=== PATIENT | male | born 1985 | race Caucasian/White ===

== ENCOUNTER 2024-12-09 14:28 | Inpatient (IN) | payer MEDICAID, OTHER, SELFPAY ==
[2024-12-09] VITALS (56 sets, daily range): BP systolic 106–184; BP diastolic 67–113; PULSE 85–125; RESP 10–98; TEMP 36.5–37.2; O2SAT 93–99; BMI 25.9
--- NOTE | 2024-12-09 | XR_ITS ---
Examinations: MRI Brain without intravenous contrast. MRA brain without intravenous contrast. MRA carotids without intravenous contrast 3-D vascular reconstructions Date and time of exam: December 09, 2024 1829 hours Indications: Onset left-sided body weakness beginning 1310 hours today, past medical history seizures, CT stroke alert today Technique: Multiple axial and sagittal images of the brain have been obtained MRA brain carotid images without contrast obtained, including 3-D postprocessing, vascular maximum intensity projection images Findings: Sellaturcica is not enlarged. The optic chiasm and infundibular stalk are not remarkable. Prepontine and interpeduncular cisterns are not enlarged. No localized enlargement of the medulla or cruz. Fourth ventricle and cerebellar tonsils normal in position. Subacute hemorrhage is not seen. Fourth ventricle is midline. Mass in the cerebellopontine angle region is not evident. 7th and 8th nerve complexes exhibits symmetry. Globes are symmetrical with no retro-orbital mass. Increased white matter signal not seen Diffusion-weighted images demonstrate no focus of restricted diffusion Mass-effect upon the ventricular system is not identified. MRA carotid images no significant carotid stenoses. MRA brain images no large vessel occlusions. Impression: Negative for acute hemorrhage, mass effect or midline shift No acute infarct No MR findings diagnostic for demyelinating disease No significant carotid stenoses No cerebral large vessel occlusions or thrombus
--- NOTE | 2024-12-09 14:30 | XR_ITS ---
Examination: CT brain head without contrast. 2-D sagittal coronal reconstructions Date and time of exam:December 09, 2024 at 1433 hours INDICATIONS: Stroke alert, onset focal neurologic deficit beginning 2 hours ago, left-sided facial droop and left-sided body weakness CTDI: vol (mGy):48.8 DLP: (mGycm):986 Technique: Multiple CT axial sections of the brain have been obtained, 5 mm slice thickness. Contrast has not been administered. 2-D sagittal, coronal reconstructions have been obtained Low dose protocols were performed. One or more of the following dose reduction techniques were used; automated exposure control, adjustment of the mA and/or KV according to patient size, use of iterative reconstruction technique. Findings: No significant ventricular enlargement. Intra-axial or extra-axial hemorrhage density is not seen. No mass effect or midline shift Basal cisterns are not remarkable. Fourth ventricle is midline. Cranial vault intact. Impression: Negative for acute hemorrhage, mass effect or midline shift Brain MRI MRA without contrast, stroke protocol, would best assess for acute ischemic change, demyelinating disease
--- NOTE | 2024-12-09 14:30 | XR_ITS ---
Examination: CTA carotids with intravenous contrast CTA brain, head with intravenous contrast. 2-D sagittal, coronal reconstructions. 3-D reconstructions. Exam date and time: December 09, 2024 1441 hours INDICATIONS: Stroke alert, onset focal neurologic deficit beginning 2 hours ago, left-sided facial droop and left-sided body weakness CTDI: vol (mGy) 16 DLP: (mGycm) 434 Technique: Multiple CTA axial brain, head carotid images post intravenous contrast injection 75 cc, [id number]. 2-D sagittal, coronal reconstructions. 3-D reconstructions, 3-D post processing including vascular maximum intensity projection images. Low dose protocols were performed. One or more of the following dose reduction techniques were used; automated exposure control, adjustment of the mA and/or KV according to patient size, use of iterative reconstruction technique. Findings: No significant common carotid carotid bifurcation or internal carotid artery stenoses Dominant left vertebral artery with no critical stenoses No cerebral arterial large vessel occlusions or thrombus IMPRESSION: No significant neck arterial stenoses No cerebral large vessel arterial occlusions or thrombus
--- NOTE | 2024-12-09 14:31 | PD.EDNEURO ---
Neuro Symptoms Deficit-RME/HPI General Chief Complaint: Neuro Symptoms/Deficit Stated Complaint: STROKE Time Seen by Provider: 12/09/24 14:30 Arrival date/time: 12/09/24 14:28 RME / HPI RME / HPI Narrative: This section includes all my notes and documentations, including HPI, PE, and ED course.? Willis Jarvis MD HPI: 39 year old male with history of seizures presents to the ED BIBA from [facility] for evaluation of stroke like symptoms today. Per medics, staff at the [facility] reported patient had possible syncopal episode and after regaining consciousness had notable left sided facial droop and arm/leg weakness. Per medics, on their evaluation patient given a G-FAST of 2. Prehospital BS 115, blood pressure 157/102. Staff denied any seizure like activity. ROS: All negative except as documented in HPI. Physical Exam: General:? Alert and oriented.? Eyes:? Conjunctivae and lids clear.? EOMI. PERRL. ENT:? No nasal congestion.? Neck:? Supple.? No carotid bruit. No JVD. Heart:?Sinus tachycardia noted. Lungs:? No respiratory distress.? Good air movement.? No rhonchi, wheezing, rales.?? Abdomen:? Soft and nontender.?? Legs:? No clubbing, cyanosis, edema.? Skin:? Warm and dry.?? Neuro:? Alert and oriented X 3.? Remarkable for dysarthria and left facial droop and left arm weakness and left leg weakness. I reviewed all diagnostic test results. My interpretation of the EKG is?sinus rhythm with no acute ST?T changes. My review of the head CT report is?no acute findings. My review of the head/neck CTA report is no acute findings. Blood tests unremarkable. At this point, diagnoses include?CVA. Treatment here included?TNK. Patient remained stable. I discussed the case with our telehealth neurologist and our senior staff consultant.? About the presentation and exam and diagnostics and treatments here.? And need of further care in the hospital.? Will accept the patient. Willis Jarvis MD Related Data Previous Rx's ?Medication ?Instructions ?Recorded azithromycin 250 mg tablet See Rx Instructions PO .COMPLEX #6 11/05/22 tabs ibuprofen 600 mg tablet 600 mg PO QID PRN pain #20 tabs 11/05/22 Allergies Allergy/AdvReac Type Severity Reaction Status Date / Time No Known Allergies Allergy Verified 11/04/22 23:22 Course Quality Measures none Orders Category Date Time Status Bedside Blood Glucose NOW Care 12/09/24 14:30 Active COVID-19 Screening Questionnaire NOW Care 12/09/24 15:31 Active Quality Systems Specialist NOW Care 12/09/24 14:30 Active Continuous Pulse Oximetry NOW Care 12/09/24 14:30 Completed Decision to Admit X1 Care 12/09/24 15:31 Completed EKG (ED ONLY) *Do not use* NOW Care 12/09/24 14:30 Completed In and Out Catheter NEEDED Care 12/09/24 14:30 Active Insert IV NOW Care 12/09/24 14:30 Active NIH Stroke Scale Q4HX8,QSHIFT Care 12/09/24 15:18 Active NIH Stroke Scale now Care 12/09/24 14:30 Active NPO NOW Care 12/09/24 14:30 Active Neuro Check Q15M Care 12/09/24 15:18 Active Nurse Swallow Screen x1 Care 12/09/24 14:30 Active Vital Signs Q15M Care 12/09/24 15:18 Active Consult to Neurology / Tele-Neurology Routine Cons 12/09/24 14:[address] angio stroke protocol Stat Exams 12/09/24 14:[address] stroke protocol Stat Exams 12/09/24 14:30 Completed EKG (ED Only) Stat Exams 12/09/24 14:30 Ordered Alcohol, Blood Medical Stat Lab 12/09/24 14:42 Completed Arterial Blood Gas Stat Lab 12/09/24 14:31 Ordered B-Type Natriuretic Peptide Stat Lab 12/09/24 14:42 Completed CBC Stat Lab 12/09/24 14:42 Completed Comprehensive Metabolic Panel Stat Lab 12/09/24 14:42 Completed Drug Screen,Urine Stat Lab 12/09/24 14:30 Ordered Magnesium Stat Lab 12/09/24 14:42 Completed Partial Thromboplastin Time Stat Lab 12/09/24 14:42 Completed Prothrombin Time with INR Stat Lab 12/09/24 14:42 Completed Troponin I Stat Lab 12/09/24 14:42 Completed Labetalol IV [Trandate IV] Med 12/09/24 14:30 Active 10 mg IV Q15M PRN Labetalol IV [Trandate IV] Med 12/09/24 15:03 Active 10 mg IVP PRNMRX1 PRN Labetalol IV [Trandate IV] Med 12/09/24 15:03 Active 10 mg IVP PRNMRX1 PRN Nicardipine/Ns 20Mg Ivpb [Cardene Ivpb] Med 12/09/24 15:03 Active 20 mg in 200 ml IV 5 mg/hr Ondansetron Inj [Zofran Inj] Med 12/09/24 14:30 Active 4 mg IV Q4HR PRN Sodium Chloride 0.9% 1000 ml [Ns] 1,000 ml Med 12/09/24 14:30 Active IV 100 mls/hr Tenecteplase Inj [TNKase Inj] Med 12/09/24 15:03 Discontinued 18.8 mg IV X1 ONE Tenecteplase Inj [TNKase Inj] Med 12/09/24 14:50 Discontinued 50 mg .ROUTE .STK-MED ONE Oxygen Delivery NOW RT 12/09/24 14:30 Active Vital Signs Vital signs: Vital Signs Pulse Rate 125 H 12/09/24 14:35 Respiratory Rate 16 12/09/24 14:35 Blood Pressure 166/113 H 12/09/24 14:35 Pulse Oximetry (%) 97 12/09/24 14:35 Oxygen Delivery Method Room Air 12/09/24 14:35 Neuro Symptoms / Deficit Patient data External records reviewed:: [facility] previous records and EMS form Clinical information provided by:: patient, EMS and law enforcement Social determinants that could affect healthcare access:: other (specify) (Incarceration) Patient has the following chronic illnesses:: Seizure disorder How is presenting disease/condition affected by chronic disease/condition?: uneffected by Evaluation data The following diagnostics were reviewed and interpreted by me:: lab results, radiology exam(s) and EKG tracing(s) (My interpretation of the EKG: Sinus tachycardia (126 bpm) with no ST-T changes. Willis Jarvis MD) Lab and/or radiology exams considered but not ordered:: None Interpretation Summary: CVA Medications / Prescriptions Medications or Prescriptions considered but not ordered:: None Medication administrations:: Medication Administration History Sodium Chloride (Ns) 1,000 mls @ 100 mls/hr IV .Q10H ROSARIO Stop: 01/08/25 14:29 Last Admin: 12/09/24 15:24 Dose: 100 mls/hr Documented By: JAMES Nicardipine/Sodium Chloride (Cardene Ivpb) 20 mg in 200 mls @ 50 mls/hr IV .Q4H PRN; Protocol PRN Reason: Per Nicardipine Stroke Protocol Stop: 01/08/25 15:02 Labetalol HCl (Labetalol Inj 5 Mg/Ml Vial 20 Ml) 10 mg IV Q15M PRN PRN Reason: HYPER Labetalol HCl (Labetalol Inj 5 Mg/Ml Vial 20 Ml) 10 mg IVP PRNMRX1 PRN PRN Reason: SBP > 185 mmHg and/or DBP > 110 Labetalol HCl (Labetalol Inj 5 Mg/Ml Vial 20 Ml) 10 mg IVP PRNMRX1 PRN PRN Reason: SBP > 180 mmHg or DBP > 105 Ondansetron HCl (Ondansetron Inj 2 Mg/Ml Inj 2 Ml) 4 mg IV Q4HR PRN PRN Reason: NAUSEA OR VOMITING Stop: 01/08/25 14:29 Discontinued Medications Tenecteplase (Tenecteplase Inj 50 Mg Vial) Confirm Administered Dose 50 mg .ROUTE .STK-MED ONE Stop: 12/09/24 14:51 Last Admin: 12/09/24 15:01 Dose: Not Given Documented By: JAMES Non-Admin Reason: Duplicate Medication on eMAR Tenecteplase (Tenecteplase Inj 50 Mg Vial) 18.8 mg 0.25 mg/kg (18.8 mg) IV X1 ONE Stop: 12/09/24 15:04 Last Admin: 12/09/24 15:22 Dose: 18.8 mg Documented By: JAMES Co-signed By: FATOUMATA Comments: given via 20g right ac over 1 min. TNK Consultations Consultation(s) initiated? (list below): Yes Consultation #1 (Physician, Specialty, Details): Telehealth neurology Diagnosis Neuro Differential Diagnosis: convulsions, delirium, subarachnoid hemorrhage, peripheral neuropathy, cerebrovascular accident, multiple sclerosis and transient cerebral ischemia Most likely diagnosis given after review of the tests above:: CVA Admission Indicated Admission indicated?: indicated Explain why admission is indicated or not indicated:: CVA Admission Request Was there a request for admission?: Yes Admission Attestation Admission request attestation: Discussed case with ICU service regarding admission. Discussed patients ED course, exam findings, labs, and radiology results. The Hospitalist [agrees,declines] to accept the patient for admission. Disposition Plan Disposition Plan: Admit Discharge Plan Plan Patient Disposition: Admit Acute Care w/in Hospital Prescriptions/Referrals Prescriptions/Med Rec: No Action azithromycin 250 mg tablet See Rx Instructions .ROUTE .COMPLEX Qty: 6 0RF Rx Instructions: For 250 mg dose pack: take 500 mg today (day 1), then 250 mg for 4 days (days 2-5) ibuprofen 600 mg tablet 600 mg PO QID PRN (Reason: pain) Qty: 20 0RF Problem List Clinical Impression: Cerebrovascular accident Patient/Caregiver Discharge Instructions Print Language: Khmer Stand Alone Forms: Anne[facility]Marie Award Info., Patient Portal Info Letter
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
[2024-12-09 14:51] LABS: Basophils # (Auto) 0.1 Thou/mm3 (0.0-0.2); Basophils % (Auto) 1 % (0-2.5); Eosinophils # (Auto) 0.4 Thou/mm3 (0.0-0.5); Eosinophils % (Auto) 4 % (0-10); Hematocrit 45.6 % (41.0-53.0); Hemoglobin 15.7 g/dL (13.5-16.0); Immature Granulocytes % (Auto) 1 % (0-0); Immature Granulocytes Auto 0.05 Thou/mm3 (0.00-0.00); Lymphocytes # (Auto) 2.3 Thou/mm3 (1.0-4.8); Lymphocytes % (Auto) 23 % (10-50); Mean Corpuscular HGB Conc 34.4 g/dl (31.0-37.0); Mean Corpuscular Hemoglobin 30.5 pg (25.0-35.0); Mean Corpuscular Volume 89 fL (80-100); Monocytes # (Auto) 0.7 Thou/mm3 (0.0-0.8); Monocytes % (Auto) 7 % (0-12); Neutrophils # (Auto) 6.4 Thou/mm3 (1.8-7.7); Neutrophils % (Auto) 65 % (37-80); Nucleated Red Blood Cell % 0 /100 WBC (0); Platelet Count 212 Thou/mm3 (140-440); RDW Standard Deviation 39.8 fL (35.1-43.9); Red Blood Count 5.15 Miln/mm3 (4.50-5.90); White Blood Count 9.9 Thou/mm3 (3.8-10.6)
--- NOTE | 2024-12-09 15:02 | PC.NURSE ---
Dr. Hutton, teleneuronlogist, performed checklist for TNKASe medication administration to be given, per Dr. Hutton's orders.
[2024-12-09 15:09] LABS: INR 0.9 (0.9-1.3); Prothrombin Time 10.4 Seconds (9.0-12.2)
[2024-12-09 15:15] LABS: Alanine Aminotransferase 103 U/L (10-49); Albumin, Serum 4.5 gm/dL (3.5-5.0); Albumin/Globulin Ratio 1.8 (1.2-2.2); Alcohol, Blood Medical < 10.0 mg/dL (0-10.0); Alkaline Phosphatase 52 U/L (46-116); Anion Gap 9 (7-16); Aspartate Amino Transferase 45 U/L (0-34); B-Type Natriuretic Peptide < 20 pg/mL (0-100); BUN/Creatinine Ratio 15 Ratio (12-20); Bilirubin,Total 0.4 mg/dL (0.3-1.2); Blood Urea Nitrogen 15 mg/dL (9-23); Calcium 9.6 mg/dL (8.3-10.6); Calcium (Corrected) 9.6 mg/dL (8.5-10.1); Carbon Dioxide 29.1 mMol/L (20.0-31.0); Chloride 99 mMol/L (98-107); Estimated Creatinine Clearance 93.6 mL/min (>60); Globulin 2.5 gm/dL (2.3-3.5); Glucose 110 mg/dL (74-106); Magnesium 2.1 mg/dL (1.6-2.6); Osmolality,Calculated 275 (275-295); Potassium 3.9 mMol/L (3.4-5.1); Sodium 137 mMol/L (136-145); Troponin I < 0.002 ng/mL (0.0-0.045); eGFR > 60 See Note
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
[2024-12-09] MEDS: TENECTEPLASE INJ 50 MG VIAL 18.8 MG IV (15:22)
[2024-12-09] MEDS: SODIUM CHLORIDE 0.9% 1000 ML 1,000 ML 100 ML IV (15:24)
[2024-12-09 16:01] LABS: Amphetamine/Methamp Scrn,U Negative (Negative); Barbiturate Screen,Urine Negative (Negative); Benzodiazepines Screen,Urine Negative (Negative); Benzoylecgonine Screen, Ur Negative (Negative); Fentanyl Screen,Urine Negative (Negative); Opiate Screen,Urine Negative (Negative); THC Screen,Urine Negative (Negative)
--- NOTE | 2024-12-09 17:04 | ECHO_ITS ---
Transthoracic Echo Report Ht (in): 67 Wt (lb): 165 Exam Location: Echo Lab Status: [facility] Assistant: Jesús Stella Indications: Procedure Performed: BP: 122 / 54 HR: Technical Quality: Very technically difficult study MEASUREMENTS (Male / Female) Normal Values DOPPLER MV Area PHT 5.0 cm? Mitral E Point Velocity 44.6 cm/s Mitral A Point Velocity 61.1 cm/s Mitral E to A Ratio 0.7 FINDINGS Left Ventricle Normal left ventricular size and wall thickness. Hyperdynamic LV. The ejection fraction is visually estimated at 70-75%. Grade I diastolic dysfunction. Right Ventricle The right ventricle is normal in size and systolic function. Left Atrium The left atrium is normal by two-dimensional, color flow and Doppler imaging with no structural abnormalities, no thrombus formation present. Right Atrium The right atrium is normal by two-dimensional imaging, color flow and Doppler imaging with no structural abnormalities, no thrombus formation present. Atrial Septum The interatrial septum appears normal with no evidence of a shunt. Aorta The aorta is normal by two-dimensional, color flow and Doppler interrogation. Mitral Valve The mitral valve is normal by two-dimensional, color flow and Doppler interrogation. There is no significant mitral valve regurgitation, stenosis or prolapse. Aortic Valve The aortic valve is trileaflet and normal by two-dimensional, color flow and Doppler interrogation. There is no significant aortic valve regurgitation. Tricuspid Valve The tricuspid valve is normal by two-dimensional, color flow and Doppler interrogation. There is trace tricuspid valve regurgitation. Pulmonic Valve The pulmonic valve is not well visualized. There is no significant pulmonic valve regurgitation. Vessels Inferior vena cava not well visualized. Pericardium The pericardium is normal by two-dimensional imaging. There is no significant pericardial effusion. CONCLUSIONS Indication: Stroke workup, w/ bubble study Negative bubbly study with no evidenceof any PFO. Consider EDDIE ifclinical index of suspicion is high. Normal left ventricular size and wall thickness.Normal LV function. Estimated EF 65-70 %. Grade I diastolic dysfunction. RV is normal in size and systolic function. Trace TR. Howard Reyes (Electronically Signed) Final Date: 11 December 2024 08:13
--- NOTE | 2024-12-09 17:13 | ESHP_ITS ---
<Statement entered by Alta Figueroa DO - 12/09/24 21:45> Senior attestation: Patient was examined and case was reviewed with team including attending physician. Note reviewed, I agree with most of its contents and agree with the patient's care. In summary patient is a 39 year old male with history of seizure disorder (stopped medications years ago) who presented to ED from [facility] with concerns of left sided facial and upper/lower extremity weakness. Last well known time ~1255, patient noted symptoms around 1310 today. In ED, tele-neurology team was consulted and advised tenecteplase. Following administration of tenecteplase, patient was admitted to the ICU for closer monitoring and further CVA management. Blood pressure goal < 180/105, prn labetalol and nicardipine drip ordered if warranted. Will repeat neuro checks q15min first 2 hours, then q30 mins for 6 hours, and q1 hour for next 16 hours. MRI head/brain to be completed after 24 hours of tenecteplase administration, will order echo with bubble study and repeat CT head/brain at 24 hours or earlier if clinically warranted. Will hold on aspirin/plavix and DVT prophylaxis for now, will order speech/physical therapy, keep NPO and avoid shipley cath insertion. Will complete additional CVA work up including a1c, lipid panel, TSH, and consult neurology team. Alta Figueroa DO PGY-3 Documentation for date of: 12/09/24 HPI History of Present Illness Chief complaint: Left-sided weakness History of present illness: Mr. Meehan is a 39-year-old male with past medical history of seizures who presented to [facility] emergency department on 12/09/2024 from [facility] with a chief complaint of left-sided weakness. Per patient he was well when he woke up earlier this morning, unable to report when the weakness started, denies having any seizure/seizure-like activity, no witnessed seizure-like activity, he was seen by nursing in the custodial around 1255, subsequently was found to have left-sided weakness around 1310, was laying in his bunk. Patient also did endorse some chest pain he had earlier this morning, patient is unable to describe how he got to the hospital. Otherwise patient denies taking any medications for his seizure, reports his last seizure was about 6 months ago. Reported that he started having tonic-clonic seizures around when he was 13 years old, did report following up with a neurologist and being on medications for seizure in the past, endorses that he stopped taking medications due to certain life stressors/triggers. Patient denies hitting his head, no bruising noted on head. ED Course: ED Vitals: On presentation BP 166/113, P125, RR 16, temp 97.8, O2 sat 97 on room air ED Labs:On presentation in ED patient CBC unremarkable, coag panel unremarkable chemistry significant for glucose 110, AST 45, ALT 103 ED Imaging:CT head negative for acute hemorrhage, mass effect or midline shift and CTA head/neck shows no significant arterial stenosis ED Treatment:Patient was given tenecteplase 18.8 mg and was started on maintenance IV fluids in ED. Teleneuro was consulted in ED, recommended tenecteplase. Patient admitted to ICU status post TNK for close monitoring. Review of Systems Review of Systems Narrative Review of Systems: ROS: -CONSTITUTIONAL: Denies weight loss, fever and chills. -HEENT: Denies changes in hearing. Positive for vision changes. -RESPIRATORY: Denies SOB and cough. -CV: Denies palpitations and positive for Chest Pain. -GI: Denies abdominal pain, nausea, vomiting,constipation and diarrhea. -: Denies dysuria and urinary frequency. -MSK: Denies myalgia and joint pain. -SKIN: Denies pruritus. Positive for rash -NEUROLOGICAL: Positive for left upper extremity, left lower extremity weakness and sensory loss, positive for headache, positive for facial asymmetry, left- sided weakness. -PSYCHIATRIC: Denies recent changes in mood. Denies anxiety and depression. 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 -Occupation: Currently incarcerated at [facility] -Martial Status: Family History: No significant family history Exam Vital Signs Temp Pulse Resp BP Pulse Ox O2 Del Method 97.8 F 106 H 15 143/86 H 98 Room Air 12/09/24 16:30 12/09/24 17:12 12/09/24 17:12 12/09/24 16:30 12/09/24 16:30 12/09/24 16:30 Narrative Exam Physical Exam General: Awake and in no acute distress. Conversational and non-toxic appearing. HEENT: Normocephalic, atraumatic, mucous membranes moist. Heart: Regular rate and rhythm, no murmurs. Lungs: Clear to auscultation with no wheezing or crackles. Abdomen: Soft, nondistended, nontender, positive bowel sounds.?No guarding or rebound tenderness. Neurologic: Alert and oriented x3, see NIHSS for details Extremities: No edema. Skin: Redness noted on chest, multiple tattoos noted. NIHSS: 1A: Level of Consciousness - Alert; keenly responsive?+ 0 1B: Ask Month and Age - Both Questions Right?+ 0 1C: Blink Eyes & Squeeze Hands - Performs 1 Task?+1 2: Test Horizontal Extraocular Movements - Normal?+ 0 3: Test Visual Reid - Partial Hemianopia?+1 4: Test Facial Palsy (Use Grimace if Obtunded) - U/L complete paralysis (upper/lower)?+ 3 5A: Test Left Arm Motor Drift -drift, but doesn't hit bed?+ 1 5B: Test Right Arm Motor Drift - No Drift for 10 Seconds?+ 0 6A: Test Left Leg Motor Drift -drift, hits bed?+ 2 6B: Test Right Leg Motor Drift - No Drift for 5 Seconds?+ 0 7: Test Limb Ataxia (FNF/Heel-Trotter) -ataxia in 1 limb +1 8: Test Sensation - Complete Loss: Cannot Sense Being Touched At All?+ 2 9: Test Language/Aphasia - Normal; mild-moderate aphasia + 1 10: Test Dysarthria - Mild-Moderate Dysarthria: Slurring but can be understood?+ 1 11: Test Extinction/Inattention - No abnormality?+ 0 NIHSS Score:?13 Results: Labs 12/09/24 14:42 12/09/24 14:42 Labs: Short CBC 12/09/24 Range/Units 14:42 WBC 9.9 (3.8-10.6) Thou/mm3 Hgb 15.7 (13.5-16.0) g/dL Hct 45.6 (41.0-53.0) % Plt Count 212 (140-440) Thou/mm3 BMP 12/09/24 14:42 Sodium 137 Potassium 3.9 Chloride 99 Carbon Dioxide 29.1 BUN 15 Creatinine 1.0 Glucose 110 H Calcium 9.6 Cardiac Enzymes 12/09/24 Range/Units 14:42 Troponin I < 0.002 (0.0-0.045) ng/mL Liver Function 12/09/24 Range/Units 14:42 Total Bilirubin 0.4 (0.3-1.2) mg/dL AST 45 H (0-34) U/L ALT 103 H (10-49) U/L Alkaline Phosphatase 52 (46-116) U/L Albumin 4.5 (3.5-5.0) gm/dL Quality Measures Quality Measures none Medications Home Medications and Allergies Allergies Allergy/AdvReac Type Severity Reaction Status Date / Time No Known Allergies Allergy Verified 11/04/22 23:22 Visit Medications Acetaminophen (Acetaminophen Supp 650 Mg Supp) 650 mg NJ Q6HR PRN PRN Reason: [id number] Stop: 01/08/25 17:01 Sodium Chloride (Ns) 1,000 mls @ 100 mls/hr IV .Q10H ROSARIO Stop: 01/08/25 14:29 Last Admin: 12/09/24 15:24 Dose: 100 mls/hr Nicardipine/Sodium Chloride (Cardene Ivpb) 20 mg in 200 mls @ 50 mls/hr IV .Q4H PRN; Protocol PRN Reason: Per Nicardipine Stroke Protocol Stop: 01/08/25 15:02 Labetalol HCl (Labetalol Inj 5 Mg/Ml Vial 20 Ml) 10 mg IV Q15M PRN PRN Reason: HYPER Labetalol HCl (Labetalol Inj 5 Mg/Ml Vial 20 Ml) 10 mg IVP [id number] PRN PRN Reason: SBP > 185 mmHg and/or DBP > 110 Labetalol HCl (Labetalol Inj 5 Mg/Ml Vial 20 Ml) 10 mg IVP [id number] PRN PRN Reason: SBP > 180 mmHg or DBP > 105 Ondansetron HCl (Ondansetron Inj 2 Mg/Ml Inj 2 Ml) 4 mg IV Q4HR PRN PRN Reason: NAUSEA OR VOMITING Stop: 01/08/25 14:29 Discontinued Medications Tenecteplase (Tenecteplase Inj 50 Mg Vial) 18.8 mg 0.25 mg/kg (18.8 mg) IV X1 ONE Stop: 12/09/24 15:04 Last Admin: 12/09/24 15:22 Dose: 18.8 mg Assessment & Plan Plan Assessment and plan: Summary: Mr. Meehan is a 39-year-old male with past medical history of seizures who presented to [facility] emergency department on 12/09/2024 from [facility] with a chief complaint of left-sided weakness. Patient admitted to ICU for close monitoring post TNK administration. Neurological Alert and oriented x 3 # CVA Ruled out hemorrhagic stroke CT head negative, CTA head/neck negative Teleneuro was consulted in ED, recommended tenecteplase, patient was given tenecteplase in ED Patient seen at bedside, NIHSS 13, left-sided weakness, decrease sensation facial asymmetry noted at bedside, patient does have partial hemianopia left eye. Status post tenecteplase 18.8 x 1 per teleneuro recs Plan: -Labetalol 10 mg IV as needed x 2, consider nicardipine drip if SBP/DBP > 180/105 -Neurocheck every 15 minutes for 2 hours, neurocheck Q 30 minutes for 6 hours after and neurocheck every hour for 16 hours -Ordered MRI brain -Ordered echo with bubble study -Will order CT brain 24 hours post Thrombolytic -N.p.o. now, nurse swallow screen -Referral to speech therapy -Referral to physical therapy -Head of bed less than 30 degrees -No DVT prophylaxis/antiplatelets/anticoagulants for 24 hours -No Shipley catheter, NG tube, arterial catheter or CVC for 24 hours -Telemetry monitoring -Euglycemia -Keep patient euthermic, NJ Tylenol as needed -Consulted neurology, appreciate recs -Follow hemoglobin A1c, lipid panel, TSH in a.m. # Seizures, by history Patient not on any antiepileptic drugs Continue to monitor for seizures Consulted neurology, appreciate recs Cardiology Treat hypertension per post thrombolytic protocol, see neuro for details Pulmonary No active issues, stable Gastrointestinal #Transaminitis AST 45/ALT 103 on admission -Follow CMP in a.m. -Follow hepatitis panel in a.m. Renal/Genitourinary No active issues, stable Endocrine Patient's blood glucose 110 on labs, will check fingerstick x 2 Follow hemoglobin A1c in a.m. Hematology No active issues, stable Infectious Disease No active issues, stable Integumentary # Redness chest Will continue to monitor DVT prophylaxis: Status post tenecteplase GI prophylaxis: Not indicated Diet: N.p.o., pending speech therapy eval Lines: Peripheral IV Code status: Full code Case discussed with Attending Dr. Griffin and Dr. Figueroa PGY3. Niall Alvarez PGY1 Disclaimer: This note was dictated by speech recognition. Minor errors in video editor may be present due to voice recognition software.
--- NOTE | 2024-12-09 18:11 | XR_ITS ---
Examination: CT brain head without contrast. 2-D sagittal coronal reconstructions Date and time of exam:December 01, 2024 1829 hours Comparison December 09, 2024 1433 hours INDICATIONS: Stroke alert December 09, 2024, patient is post CTA study with contrast today CTDI: vol (mGy):50.3 DLP: (mGycm):1024 Technique: Multiple CT axial sections of the brain have been obtained, 5 mm slice thickness. Contrast has not been administered. 2-D sagittal, coronal reconstructions have been obtained Low dose protocols were performed. One or more of the following dose reduction techniques were used; automated exposure control, adjustment of the mA and/or KV according to patient size, use of iterative reconstruction technique. Findings: No significant ventricular enlargement. Intra-axial or extra-axial hemorrhage density is not seen. No mass effect or midline shift Basal cisterns are not remarkable. Fourth ventricle is midline. Cranial vault intact. Impression: No interval acute hemorrhage, mass effect or midline shift Recommend brain MRI follow-up
--- NOTE | 2024-12-09 18:30 | PC.NURSE ---
PT TAKEN TO CT WITH MITRA GRANDE.
--- NOTE | 2024-12-09 19:41 | PC.NURSE ---
Per conveyor line battery charger Toby, pt will be going straight to ICU room from MRI.
[2024-12-09] MEDS: MORPHINE SULF INJ 10 MG/ML VIAL 2 MG IVP (20:58)
--- NOTE | 2024-12-09 23:21 | VVPN_ITS ---
Telemedicine visit statement This visit was conducted with the use of virtual visit was obtained on 12/09/24 at 2321. Documentation for date of: 12/09/24 Subjective Subjective Interval history: Patient is in ICU. Continues to complain of left-sided weakness, not any better after the thrombolytic therapy. He did complain of headache and was given morphine before he got the MRI brain Virtual exam Vital Signs Temp Pulse Resp BP Pulse Ox O2 Del Method 98.5 F 93 13 121/72 96 Room Air 12/09/24 19:47 12/09/24 22:30 12/09/24 22:30 12/09/24 22:30 12/09/24 22:30 12/09/24 19:47 Objective Labs 12/09/24 14:42 12/09/24 14:42 Labs: Laboratory Results - last 24 hr 12/09/24 12/09/24 14:42 15:41 WBC 9.9 RBC 5.15 Hgb 15.7 Hct 45.6 MCV 89 MCH 30.5 MCHC 34.4 RDW Std Deviation 39.8 Plt Count 212 Neut % (Auto) 65 Lymph % (Auto) 23 [place] % (Auto) 7 Eos % (Auto) 4 Baso % (Auto) 1 Neut # (Auto) 6.4 Lymph # (Auto) 2.3 [place] # (Auto) 0.7 Eos # (Auto) 0.4 Baso # (Auto) 0.1 Immature Gran # (Auto) 0.05 H Absolute Nucleated RBC 0.00 Immature Gran % 1 H Nucleated RBC % 0 PT 10.4 INR 0.9 APTT 25.0 Sodium 137 Potassium 3.9 Chloride 99 Carbon Dioxide 29.1 Anion Gap 9 BUN 15 Creatinine 1.0 Estim Creat Clear Calc 93.6 eGFR > 60 BUN/Creatinine Ratio 15 Glucose 110 H Calculated Osmolality 275 Calcium 9.6 Corrected Calcium 9.6 Magnesium 2.1 Total Bilirubin 0.4 AST 45 H ALT 103 H Alkaline Phosphatase 52 Troponin I < 0.002 B-Natriuretic Peptide < 20 Total Protein 7.0 Albumin 4.5 Globulin 2.5 Albumin/Globulin Ratio 1.8 Urine Opiates Screen Negative Urine Fentanyl Screen Negative Ur Barbiturates Screen Negative U Amphetamin/Meth Scrn Negative U Benzodiazepines Scrn Negative U Cocaine Metab Screen Negative U Marijuana (THC) Screen Negative Ethyl Alcohol < 10.0 Assessment & Plan Problem List (1) Cerebrovascular accident: Status: Acute Assessment and plan: Manifesting as left-sided weakness, remains unchanged after the thrombolytic therapy MRI brain: Negative for acute infarction. Consider physical therapy for strengthening and balancing Follow-up with rest of the workup
[2024-12-10] VITALS (47 sets, daily range): BP systolic 102–134; BP diastolic 48–86; PULSE 65–108; RESP 9–99; TEMP 36.3–37.4; O2SAT 95–99; BMI 12.0
[2024-12-10] MEDS: SODIUM CHLORIDE 0.9% 1000 ML 1,000 ML 100 ML IV (02:34)
[2024-12-10 06:22] LABS: Basophils # (Auto) 0.1 Thou/mm3 (0.0-0.2); Basophils % (Auto) 1 % (0-2.5); Eosinophils # (Auto) 0.5 Thou/mm3 (0.0-0.5); Eosinophils % (Auto) 6 % (0-10); Hematocrit 45.6 % (41.0-53.0); Hemoglobin 15.4 g/dL (13.5-16.0); Immature Granulocytes % (Auto) 1 % (0-0); Immature Granulocytes Auto 0.04 Thou/mm3 (0.00-0.00); Lymphocytes # (Auto) 3.2 Thou/mm3 (1.0-4.8); Lymphocytes % (Auto) 37 % (10-50); Mean Corpuscular HGB Conc 33.8 g/dl (31.0-37.0); Mean Corpuscular Hemoglobin 30.4 pg (25.0-35.0); Mean Corpuscular Volume 90 fL (80-100); Monocytes # (Auto) 0.8 Thou/mm3 (0.0-0.8); Monocytes % (Auto) 9 % (0-12); Neutrophils % (Auto) 47 % (37-80); Nucleated Red Blood Cell % 0 /100 WBC (0); Platelet Count 193 Thou/mm3 (140-440); RDW Standard Deviation 40.6 fL (35.1-43.9); Red Blood Count 5.07 Miln/mm3 (4.50-5.90); White Blood Count 8.6 Thou/mm3 (3.8-10.6)
[2024-12-10 06:26] LABS: Partial Thromboplastin Time 26.3 Seconds (22.0-36.0); Prothrombin Time 10.6 Seconds (9.0-12.2)
[2024-12-10 06:39] LABS: Glucose Estimated Average 103 mg/dL (80-131); Hemoglobin A1C 5.2 % Hgb (4.8-6.0)
[2024-12-10 06:49] LABS: Alanine Aminotransferase 89 U/L (10-49); Albumin, Serum 3.8 gm/dL (3.5-5.0); Albumin/Globulin Ratio 1.6 (1.2-2.2); Alkaline Phosphatase 42 U/L (46-116); Anion Gap 8 (7-16); Aspartate Amino Transferase 35 U/L (0-34); BUN/Creatinine Ratio 14 Ratio (12-20); Bilirubin,Total 0.4 mg/dL (0.3-1.2); Blood Urea Nitrogen 13 mg/dL (9-23); Calcium 9.6 mg/dL (8.3-10.6); Calcium (Corrected) 9.8 mg/dL (8.5-10.1); Carbon Dioxide 24.5 mMol/L (20.0-31.0); Chloride 108 mMol/L (98-107); Creatinine (Component) 0.9 mg/dL (0.6-1.3); Globulin 2.4 gm/dL (2.3-3.5); Glucose 77 mg/dL (74-106); Magnesium 2.1 mg/dL (1.6-2.6); Osmolality,Calculated 278 (275-295); Phosphorous 3.9 mg/dL (2.4-5.1); Potassium 4.6 mMol/L (3.4-5.1); Sodium 140 mMol/L (136-145); Thyroid Stimulating Hormone 8.31 uIU/mL (0.55-4.78); Total Protein 6.2 gm/dL (5.7-8.2); eGFR > 60 See Note
[2024-12-10 07:05] LABS: Cardiac Risk Estimate 6.2 RATIO (4.0-6.7); Cholesterol 281 mg/dL (132-200); HDL Cholesterol 45 mg/dL (40-60); LDL Cholesterol,Calculated 175 mg/dL (0-130); Triglycerides 304 mg/dL (30-150)
[2024-12-10 07:18] LABS: Hepatitis A Antibody IgM Non Reactive (Non React); Hepatitis B Core Antibody IgM Non Reactive (Non React); Hepatitis B Surface Antigen Non Reactive (Non React); Hepatitis C Antibody Non Reactive (Non React)
[2024-12-10 08:15] LABS: Free T4 (Free Thyroxine) 1.19 ng/dL (0.89-1.76)
--- NOTE | 2024-12-10 08:41 | ESPR_ITS ---
Documentation for date of: 12/10/24 Subjective Subjective Interval history: This is a 39yo M admitted to the ICU for suspected CVA s/p TNK. He has a h/o sz in the past but is not on any meds. He presented with L hemiplegia and L facial droop. There has been no change or improvement in his overall condition. MRI brain shows no acute stroke. pt denies n/v, fevers/chills, SOB/cough. c/o numbness over face and L side. states his HICKS from last night is improved. 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 Teacher Labs 12/10/24 04:38 12/10/24 04:38 Labs: Laboratory Results - last 24 hr 12/09/24 12/09/24 12/10/24 14:42 15:41 04:38 WBC 9.9 8.6 RBC 5.15 5.07 Hgb 15.7 15.4 Hct 45.6 45.6 MCV 89 90 MCH 30.5 30.4 MCHC 34.4 33.8 RDW Std Deviation 39.8 40.6 Plt Count 212 193 Neut % (Auto) 65 47 Lymph % (Auto) 23 37 Jenkins % (Auto) 7 9 Eos % (Auto) 4 6 Baso % (Auto) 1 1 Neut # (Auto) 6.4 4.0 Lymph # (Auto) 2.3 3.2 Jenkins # (Auto) 0.7 0.8 Eos # (Auto) 0.4 0.5 Baso # (Auto) 0.1 0.1 Immature Gran # (Auto) 0.05 H 0.04 H Absolute Nucleated RBC 0.00 0.00 Immature Gran % 1 H 1 H Nucleated RBC % 0 0 PT 10.4 10.6 INR 0.9 1.0 APTT 25.0 26.3 Sodium 137 140 Potassium 3.9 4.6 D Chloride 99 108 H Carbon Dioxide 29.1 24.5 Anion Gap 9 8 BUN 15 13 Creatinine 1.0 0.9 Estim Creat Clear Calc 93.6 104.0 eGFR > 60 > 60 BUN/Creatinine Ratio 15 14 Glucose [address] Glu mg/dL 103 Hemoglobin A1c 5.2 Calculated Osmolality 275 278 Calcium 9.6 9.6 Corrected Calcium 9.6 9.8 Phosphorus 3.9 Magnesium 2.1 2.1 Total Bilirubin 0.4 0.4 AST 45 H 35 H ALT 103 H 89 H Alkaline Phosphatase 52 42 L Troponin I < 0.002 B-Natriuretic Peptide < 20 Total Protein 7.0 6.2 Albumin 4.5 3.8 D Globulin 2.5 2.4 Albumin/Globulin Ratio 1.8 1.6 Triglycerides 304 H Cholesterol 281 H LDL Cholesterol, Calc 175 H HDL Cholesterol 45 Cholesterol/HDL Ratio 6.2 TSH 8.31 H Free T4 1.19 Urine Opiates Screen Negative Urine Fentanyl Screen Negative Ur Barbiturates Screen Negative U Amphetamin/Meth Scrn Negative U Benzodiazepines Scrn Negative U Cocaine Metab Screen Negative U Marijuana (THC) Screen Negative Ethyl Alcohol < 10.0 Hepatitis A IgM Ab Non Reactive Hep Bs Antigen Non Reactive Hep B Core IgM Ab Non Reactive Hepatitis C Antibody Non Reactive Assessment & Plan Problem List (1) Cerebrovascular accident: Status: Acute Additional Assessment Additional Assessment: In brief this is a 39yo M admitted to the ICU with dx of CVA s/p tnk a/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 CVA- pt does not appear to have a stroke at this time. MRI brain is neg for acute changes, CTA head and neck is neg. pt received TNK in the ER at ~3pm yesterday in the ER - neuro eval appreciated - unclear reason for pts L sided weakness - does have a h/o Sz therefore ? Todds paralysis and if pt perhaps had a Sz at the outside facility - ? C spine lesion causing L sided weakness however pt also has L facial droop which would not be caused by a C spine lesion - check EEG - await further input from Neuro CV Dyslipidemia- start statin Resp stable Renal stable GI Transaminitis- mildy elevated - check acute hep panel - check abd us Endo ? subclinical hypothyroid- nl free T4 and slightly elevated TSH at 8 - fu as outpt in 6-8 weeks Heme stable ID stable case d/w ICU team labs, imaging, records reviewed ~40min required for eval, exam, review, discussion and formulation of POC for this acutely ill pt Provider Notation Provider Notation: Although this document has been carefully reviewed, there may still be some phonetic and other typographical errors. These errors are purely grammatical due to imperfections in the software program and should not be construed in any way to compromise the substance of the patient's medical care during this visit. Thank you for the opportunity and privilege in assisting you with this patient's care and management.
--- NOTE | 2024-12-10 09:38 | XR_ITS ---
Examination: MRI cervical spine without intravenous contrast Date and time of exam: December 10, 2024 2138 hours INDICATIONS: Left sided body weakness and neck pain today Technique: Multiple axial and sagittal sections of the cervical spine to been obtained. T2 weighted sagittal sections, TR 3, 270, TE 117 T1-weighted sagittal sections, TR 500, TE 11 T1-weighted axial sections, TR 607, TE 12, axial sections TR 18, TE 27 and T2 weighted transverse sections, TR 3920, TE 122. Findings: Satisfactory alignment cervical vertebral bodies Disc desiccation upper 4 levels No cervical fracture Intact odontoid Adequate marrow signal cervical vertebral bodies C2-C3 no disc protrusion C3-C4 moderate left neural foraminal stenosis C4-C5 mild right neural foraminal stenosis C5-C6 3 mm central subarticular osteophyte disc complex, moderate bilateral neural foraminal stenosis C6-C7 no disc protrusion C7-T1 no disc protrusion IMPRESSION: C3-C4 moderate left neural foraminal stenosis. C5-C6 3 mm central subarticular osteophyte disc complex, moderate bilateral neural foraminal stenosis
--- NOTE | 2024-12-10 10:15 | PC.NURSE ---
pt states he has a headache, 2-10, Dr. Figueroa notified, no orders received at this time
--- NOTE | 2024-12-10 10:44 | ESPR_ITS ---
<Statement entered by Alta Figueroa DO - 12/10/24 17:42> Senior attestation: Patient was examined and case was reviewed with team including attending physician. Note reviewed, I agree with most of its contents and agree with the patient's care. Yesterday repeat head CT was completed due to headache post TNK, no hemorrhage noted. MRI completed, no signs of acute infarct. Patient continues to have deficits on left side, facial and upper/lowr extremities. Will order EEG and C spine MRI to assess for any compressions or sources contributing to patient's symptoms. Speech therapy evaluated patient, started on diet. Patient in stable condition to downgrade to telemetry, further care with hospital team beginning 12/11. Alta Figueroa DO PGY-3 Documentation for date of: 12/10/24 Subjective Subjective Interval history: Mr. Meehan is a 39-year-old male with past medical history of seizures who presented to [facility] emergency department on 12/09/2024 from [facility] with a chief complaint of left-sided weakness. Per patient he was well when he woke up earlier this morning, unable to report when the weakness started, denies having any seizure/seizure-like activity, no witnessed seizure-like activity, he was seen by nursing in the jail around 1255, subsequently was found to have left-sided weakness around 1310, was laying in his bunk. Patient also did endorse some chest pain he had earlier this morning, patient is unable to describe how he got to the hospital. Otherwise patient denies taking any medications for his seizure, reports his last seizure was about 6 months ago. Reported that he started having tonic-clonic seizures around when he was 13 years old, did report following up with a neurologist and being on medications for seizure in the past, endorses that he stopped taking medications due to certain life stressors/triggers. Patient denies hitting his head, no bruising noted on head. 12/10/2024: Patient seen and examined at bedside, MRI head negative for any acute infarct. Patient was assessed by neurology yesterday, recommends physical therapy for now. Will continue to monitor patient will continue NIHSS assessment to monitor for improvement. Possible left-sided deficits secondary to seizure-like activity, patient possibly in postictal state, suspicion of Ghulam's paralysis. Will obtain EEG, patient does have history of seizures, not on any medications, neurology consulted. Ordered cervical spine MRI to further investigate causes of left sided weakness. Otherwise patient is alert and oriented x 3, was seen by speech therapy today, started on dysphagia type III diet. Patient has no current complaints, patient will be downgraded to telemetry later today, hospitalist team will resume care for patient in a.m. Exam Vital Signs Temp Pulse Resp BP Pulse Ox O2 Del Method 97.8 F 103 H 14 112/78 98 Room Air 12/10/24 08:00 12/10/24 10:00 12/10/24 10:00 12/10/24 10:12/10/24 10:12/10/24 08:00 Narrative Exam Physical Exam General: Awake and in no acute distress. Conversational and non-toxic appearing. HEENT: Normocephalic, atraumatic, mucous membranes moist. Heart: Regular rate and rhythm, no murmurs. Lungs: Clear to auscultation with no wheezing or crackles. Abdomen: Soft, nondistended, nontender, positive bowel sounds.?No guarding or rebound tenderness. Neurologic: Alert and oriented x3, left upper extremity, left lower extremity weakness, decreased sensation on left side of body, left temporal hemianopia. Extremities: No edema. Skin: Redness noted on chest, multiple tattoos noted. Objective Labs 12/10/24 04:38 12/10/24 04:38 Labs: Laboratory Results - last 24 hr 12/09/24 12/09/24 12/10/24 14:42 15:41 04:38 WBC 9.9 8.6 RBC 5.15 5.07 Hgb 15.7 15.4 Hct 45.6 45.6 MCV 89 90 MCH 30.5 30.4 MCHC 34.4 33.8 RDW Std Deviation 39.8 40.6 Plt Count 212 193 Neut % (Auto) 65 47 Lymph % (Auto) 23 37 [place] % (Auto) 7 9 Eos % (Auto) 4 6 Baso % (Auto) 1 1 Neut # (Auto) 6.4 4.0 Lymph # (Auto) 2.3 3.2 [place] # (Auto) 0.7 0.8 Eos # (Auto) 0.4 0.5 Baso # (Auto) 0.1 0.1 Immature Gran # (Auto) 0.05 H 0.04 H Absolute Nucleated RBC 0.00 0.00 Immature Gran % 1 H 1 H Nucleated RBC % 0 0 PT 10.4 10.6 INR 0.9 1.0 APTT 25.0 26.3 Sodium 137 140 Potassium 3.9 4.6 D Chloride 99 108 H Carbon Dioxide 29.1 24.5 Anion Gap 9 8 BUN 15 13 Creatinine 1.0 0.9 Estim Creat Clear Calc 93.6 104.0 eGFR > 60 > 60 BUN/Creatinine Ratio 15 14 Glucose [address] Glu mg/dL 103 Hemoglobin A1c 5.2 Calculated Osmolality 275 278 Calcium 9.6 9.6 Corrected Calcium 9.6 9.8 Phosphorus 3.9 Magnesium 2.1 2.1 Total Bilirubin 0.4 0.4 AST 45 H 35 H ALT 103 H 89 H Alkaline Phosphatase 52 42 L Troponin I < 0.002 B-Natriuretic Peptide < 20 Total Protein 7.0 6.2 Albumin 4.5 3.8 D Globulin 2.5 2.4 Albumin/Globulin Ratio 1.8 1.6 Triglycerides 304 H Cholesterol 281 H LDL Cholesterol, Calc 175 H HDL Cholesterol 45 Cholesterol/HDL Ratio 6.2 TSH 8.31 H Free T4 1.19 Urine Opiates Screen Negative Urine Fentanyl Screen Negative Ur Barbiturates Screen Negative U Amphetamin/Meth Scrn Negative U Benzodiazepines Scrn Negative U Cocaine Metab Screen Negative U Marijuana (THC) Screen Negative Ethyl Alcohol < 10.0 Hepatitis A IgM Ab Non Reactive Hep Bs Antigen Non Reactive Hep B Core IgM Ab Non Reactive Hepatitis C Antibody Non Reactive Quality Measures Quality Measures none Assessment & Plan Assessment Current Active Medications: Generic Name Dose Route Start Last Admin Trade Name Freq PRN Reason Stop Dose Admin Acetaminophen 650 mg 12/09/24 17:02 Acetaminophen Supp 650 Mg Supp SD 01/08/25 17:01 Q6HR PRN [id number] Atorvastatin Calcium 40 mg 12/10/24 21:00 Atorvastatin Calcium 20 Mg Tablet PO 01/09/25 20:59 HS ROSARIO Nicardipine/Sodium Chloride 20 mg in 200 mls @ 50 mls/hr 12/09/24 15:03 Cardene Ivpb IV 01/08/25 15:02 .Q4H PRN Per Nicardipine Stroke Protocol Protocol 5 MG/HR Labetalol HCl 10 mg 12/09/24 14:30 Labetalol Inj 5 Mg/Ml Vial 20 Ml IV Q15M PRN HYPER Ondansetron HCl 4 mg 12/09/24 14:30 Ondansetron Inj 2 Mg/Ml Inj 2 Ml IV 01/08/25 14:29 Q4HR PRN NAUSEA OR VOMITING Plan Assessment and plan: Summary: Mr. Meehan is a 39-year-old male with past medical history of seizures who presented to [facility] emergency department on 12/09/2024 from [facility] with a chief complaint of left-sided weakness. Patient admitted to ICU for close monitoring post TNK administration. Neurological Alert and oriented x 3 # Left-sided weakness # Left temporal hemianopia # CVA, ruled out # Seizures, by history Differential diagnosis: Postictal, Ghulam's paralysis, ?spinal disorder, MS, ?Migraine with aura CT head negative, CTA head/neck negative, MRI head negative for acute infarct. Teleneuro was consulted in ED, recommended tenecteplase, patient was given tenecteplase in ED Patient seen at bedside, NIHSS 13, left-sided weakness, decrease sensation facial asymmetry noted at bedside, patient does have partial hemianopia left eye. Status post tenecteplase 18.8 x 1 per teleneuro recs Hemoglobin A1c 5.2, TSH 8.31, free T41.19, triglycerides 304, cholesterol 381, LDL 175 Patient not on any antiepileptic drugs Plan: -Neurocheck every hour -Follow echo with bubble study -Follow EEG -Follow MRI cervical spine -Consider CT head if worsening of headache/focal deficits -Dysphagia 3 diet -Referral to physical therapy -Started on atorvastatin 40 mg at bedtime -Telemetry monitoring -Keep patient euthermic, SD Tylenol as needed -Consulted neurology, appreciate recs -Continue to monitor for seizures; seizure precautions -Consulted neurology, appreciate recs Cardiology # Hyperlipidemia # Hypercholesterolemia triglycerides 304, cholesterol 381, LDL 175 Plan: -Started on atorvastatin 40 mg at bedtime Pulmonary No active issues, stable Gastrointestinal #Transaminitis, improving AST 45/ALT 103 on admission Hepatitis panel negative -Follow CMP in a.m. Renal/Genitourinary No active issues, stable Endocrine No active issues, stable Hematology No active issues, stable Infectious Disease No active issues, stable Integumentary # Redness chest Will continue to monitor DVT prophylaxis: Status post tenecteplase, will start DVT prophylaxis tonight GI prophylaxis: Not indicated Diet: Dysphagia 3 Lines: Peripheral IV Code status: Full code Case discussed with Attending Dr. Griffin and Dr. Figueroa PGY3. Niall Alvarez PGY1 Disclaimer: This note was dictated by speech recognition. Minor errors in skidway worker may be present due to voice recognition software.
--- NOTE | 2024-12-10 12:18 | PC.SS ---
Patient is currently in ICU. He is from [facility]. Admitted for CVA workup. MRI is negative. Patient confirmed demographic information. Patient prior to admission did not use any DME to assist with ambulation. No 02 prior to hospitalization. Patient was able to complete ADL's independently prior to hospitalization. Patient confirmed his , Noemy Meneses, as medical decision maker. PCP: Dr. Ayala. Patient does not possess any specialty providers. Patient does not participate with dialysis or any specialty providers. No pharmacy identified. D/c plan is for patient to return to [facility]. Law enforcement to arrange transportation on behalf of patient. No further intervention required at this time.
--- NOTE | 2024-12-10 13:31 | EVENTNT_ITS ---
Documentation for date of: 12/10/24 Event Note Event Note: Sign out received by ICU team. In summary this is a 39 y/o with past medical history of seizures who presented to ED on 12/09/2024 from [facility] with a chief complaint of left-sided weakness. In ED, tele-neurology team was consulted and recommended tenecteplase tx. Afterwhich patient was admitted to the ICU for monitoring and further CVA management. MRI head/brain to be completed after 24 hours of tenecte plase administration which showed no signs of acute infarct, echo with bubble study and head CT was done due to headache post TNK, no hemorrhage noted. Patient continues to have deficits on left side, facial and upper/lowr extremities. Patient at this time is medically stable for transfer to the floors. Hospitalist team aware and will resume care 12/11/2024. Case discussed with my attending Dr. Noam Prabhakar MD PGY-1
--- NOTE | 2024-12-10 13:38 | PC.SS ---
Update: Patient to be downgraded from ICU.
[2024-12-10] MEDS: ACETAMINOPHEN 325 MG TABLET PO (16:20)
[2024-12-10] MEDS: ATORVASTATIN CALCIUM 20 MG TABLET 40 MG PO (20:55)
--- NOTE | 2024-12-10 23:51 | PD.NEUROPROG ---
Documentation for date of: 12/10/24 Subjective Subjective Interval history: Patient was seen in ICU at the bedside. Continues to have left hemiparesis. Exam - Neurology Vital Signs Temp Pulse Resp BP Pulse Ox O2 Del Method 97.3 F 105 H 16 112/48 L 97 Room Air 12/10/24 16:00 12/10/24 17:30 12/10/24 17:30 12/10/24 17:30 12/10/24 17:30 12/10/24 16:00 Narrative Exam GENERAL APPEARANCE: Well hydrated, well-nourished in no acute distress. HEENT: Normocephalic, atraumatic, extraocular movements intact. Pupils: Equal reacting to light and accommodation NECK: Supple, no JVD or bruits. CARDIOVASULAR: Heart: S1, S2 heard, regular without S3-S4 or murmur no rubs or gallops. LUNGS/CHEST: Clear to auscultation bilaterally. No rails, rhonchi, or wheezing. Normal inspection. ABDOMEN: Soft, nontender, with normal bowel sounds. No pulsatile masses. No rebound, rigidity, or guarding. Normal inspection and palpation. EXTREMITIES: Normal inspection and palpation. No edema, clubbing or cyanosis. SKIN: Warm and dry without rashes. Normal inspection. MUSCULOSKELETAL: No cervical, thoracic, lumbar or midline bony tenderness. Normal inspection. NEURO: Alert, awake and oriented x3. Cranial nerves: II through XII grossly intact. Speech and language: Normal with no dysarthria or dysphasia. Motor system: Tone and bulk: Normal: Strength: Left hemiparesis noted. deep tendon reflexes: 2+ bilaterally symmetrical. Plantar reflex: Downgoing bilaterally. Sensory system: Impaired to all modalities of sensation on the left. Coordination: Intact to [id number] and aafa-kwly-qwrs test on the right. No ataxia, no dysmetria, or dysdiadochokinesia noted. No intention tremors noted. Gait: Cannot be tested. No signs of meningeal irritation noted. PSYCHIATRIC: Flat mood and affect Objective Labs 12/10/24 04:38 12/10/24 04:38 Labs: Laboratory Results - last 24 hr 12/10/24 04:38 WBC 8.6 RBC 5.07 Hgb 15.4 Hct 45.6 MCV 90 MCH 30.4 MCHC 33.8 RDW Std Deviation 40.6 Plt Count 193 Neut % (Auto) 47 Lymph % (Auto) 37 [place] % (Auto) 9 Eos % (Auto) 6 Baso % (Auto) 1 Neut # (Auto) 4.0 Lymph # (Auto) 3.2 [place] # (Auto) 0.8 Eos # (Auto) 0.5 Baso # (Auto) 0.1 Immature Gran # (Auto) 0.04 H Absolute Nucleated RBC 0.00 Immature Gran % 1 H Nucleated RBC % 0 PT 10.6 INR 1.0 APTT 26.3 Sodium 140 Potassium 4.6 D Chloride 108 H Carbon Dioxide 24.5 Anion Gap 8 BUN 13 Creatinine 0.9 Estim Creat Clear Calc 104.0 eGFR > 60 BUN/Creatinine Ratio [address] Glu mg/dL 103 Hemoglobin A1c 5.2 Calculated Osmolality 278 Calcium 9.6 Corrected Calcium 9.8 Phosphorus 3.9 Magnesium 2.1 Total Bilirubin 0.4 AST 35 H ALT 89 H Alkaline Phosphatase 42 L Total Protein 6.2 Albumin 3.8 D Globulin 2.4 Albumin/Globulin Ratio 1.6 Triglycerides 304 H Cholesterol 281 H LDL Cholesterol, Calc 175 H HDL Cholesterol 45 Cholesterol/HDL Ratio 6.2 TSH 8.31 H Free T4 1.19 Hepatitis A IgM Ab Non Reactive Hep Bs Antigen Non Reactive Hep B Core IgM Ab Non Reactive Hepatitis C Antibody Non Reactive Assessment & Plan Assessment and plan (1) Cerebrovascular accident: Status: Acute Assessment and plan: Reassurance given to the patient regarding the negative MRI brain and CT head Patient continued to have left hemiparesis, not any better with thrombolytic therapy. Suspect nonneurological. Continue with physical therapy Continue with aspirin 81 mg and statin. Cervical spine findings unlikely will explain his presenting symptoms
[2024-12-11] VITALS (9 sets, daily range): BP systolic 99–119; BP diastolic 64–79; PULSE 70–108; RESP 12–98; TEMP 36.3–36.8; O2SAT 96–99; BMI 12.0
[2024-12-11 05:47] LABS: Basophils # (Auto) 0.1 Thou/mm3 (0.0-0.2); Basophils % (Auto) 1 % (0-2.5); Eosinophils # (Auto) 0.5 Thou/mm3 (0.0-0.5); Eosinophils % (Auto) 5 % (0-10); Hematocrit 48.4 % (41.0-53.0); Hemoglobin 16.3 g/dL (13.5-16.0); Immature Granulocytes % (Auto) 0 % (0-0); Immature Granulocytes Auto 0.04 Thou/mm3 (0.00-0.00); Lymphocytes # (Auto) 3.2 Thou/mm3 (1.0-4.8); Lymphocytes % (Auto) 34 % (10-50); Mean Corpuscular HGB Conc 33.7 g/dl (31.0-37.0); Mean Corpuscular Hemoglobin 30.1 pg (25.0-35.0); Mean Corpuscular Volume 90 fL (80-100); Monocytes # (Auto) 0.7 Thou/mm3 (0.0-0.8); Monocytes % (Auto) 8 % (0-12); Neutrophils # (Auto) 4.9 Thou/mm3 (1.8-7.7); Neutrophils % (Auto) 53 % (37-80); Nucleated Red Blood Cell % 0 /100 WBC (0); Platelet Count 195 Thou/mm3 (140-440); RDW Standard Deviation 40.7 fL (35.1-43.9); Red Blood Count 5.41 Miln/mm3 (4.50-5.90); White Blood Count 9.4 Thou/mm3 (3.8-10.6)
[2024-12-11 06:14] LABS: Alanine Aminotransferase 86 U/L (10-49); Albumin, Serum 4.1 gm/dL (3.5-5.0); Albumin/Globulin Ratio 1.5 (1.2-2.2); Alkaline Phosphatase 49 U/L (46-116); Anion Gap 8 (7-16); Aspartate Amino Transferase 28 U/L (0-34); BUN/Creatinine Ratio 14 Ratio (12-20); Bilirubin,Total 0.5 mg/dL (0.3-1.2); Blood Urea Nitrogen 14 mg/dL (9-23); Calcium 9.9 mg/dL (8.3-10.6); Calcium (Corrected) 9.9 mg/dL (8.5-10.1); Chloride 99 mMol/L (98-107); Estimated Creatinine Clearance 93.6 mL/min (>60); Globulin 2.8 gm/dL (2.3-3.5); Glucose 78 mg/dL (74-106); Osmolality,Calculated 273 (275-295); Phosphorous 4.5 mg/dL (2.4-5.1); Potassium 4.5 mMol/L (3.4-5.1); Sodium 137 mMol/L (136-145); Total Protein 6.9 gm/dL (5.7-8.2); eGFR > 60 See Note
[2024-12-11] MEDS: ASPIRIN EC 81 MG TABEC PO (10:23)
--- NOTE | 2024-12-11 13:28 | PC.SS ---
DIGITAL ANALYTICS MANAGER attempted phone contact with [facility] to provide update on PT evaluation. PT eval indicates patient is max assist, demonstrating weakness upon standing up. No response DIGITAL ANALYTICS MANAGER left message requesting return call.
--- NOTE | 2024-12-11 13:30 | PC.SS ---
[facility] usp contact number is [phone] (nursing).
--- NOTE | 2024-12-11 14:53 | ESDS_ITS ---
<Statement entered by Stephanie Santacruz DO - 12/12/24 09:17> I, Stephanie Santacruz DO, attest that I was physically present for the clemens portions of the service and evaluated the patient with the resident and I reviewed and discussed the case with the resident and agree with the resident's findings and plans of care as documented above Planned Discharge Date 12/11/24 DS: Providers Provider Date of admission: 12/09/24 16:56 Primary care physician: Jennifer Ayala([facility])MD Admitting Provider: Lucina Griffin MD Attending Provider on Admission: Lucina Griffin MD Consults: 12/09/24 14:30 Consult to Neurology / Tele-Neurology Routine Comment: Consulting Provider: [facility] 12/09/24 17:05 Consult to Neurology / Tele-Neurology Routine Comment: Stroke Workup Consulting Provider: Noé Marin Referral Physical Therapy Routine Comment: Physician Instructions: Referral Speech Therapy Routine Comment: Attending Provider on DC: Stephanie Santacruz DO Discharging Provider: Papi Prabhakar MD Anticipated date of discharge: 12/11/24 DS: Diagnosis Problem List Completed Was Problem List Reviewed/Reconciled?: Yes Hospital Course Hospital Course Hospital course: 39 y/o with past medical history of seizures who presented to ED on 12/09/2024 from [facility] with a chief complaint of left-sided weakness. In ED, tele-neurology team was consulted and recommended tenecteplase tx. Afterwhich patient was admitted to the ICU for monitoring and further CVA management. MRI head/brain to be completed after 24 hours of tenecteplase administration which showed no signs of acute infarct, echo with bubble study and head CT was done due to headache post TNK, no hemorrhage noted. Patient con tinues to have deficits on left side, facial and upper/lowr extremities. In- house neurology Dr Marin consulted and recommended EEG for monitoring of seizures. Patient was later transferred to the medical floor. During stay in the hospital for patient was evaluated by physical therapy who recommended patient to go to intermediate facility. Patient's neurostatus was monitored continuously while on the medical floor. Speech evaluation was done and successfully passed swallow screen started on diet. Patient also had echo cardiogram with bubble study to look for any patent foramen ovale or atrial septal defect which was negative. Patient was also started on aspirin and atorvastatin for stroke. At this time patient is medically stable for discharge. Recommend taking aspirin and atorvastatin for possible stroke, please follow-up with neurologist Dr Marin within 2 weeks of discharge from hospital. In case of worsening symptoms return to emergency room. Problem list: # Left-sided weakness # Left temporal hemianopia # CVA, ruled out # Seizures, by history # Hyperlipidemia # Hypercholesterolemia #Transaminitis, improving # Redness chest Case discussed with my attending Dr. Noam Prabhakar MD PGY-1 Status at Discharge Functional status at discharge: wheelchair bound Overall status at discharge: patient is progressing back to baseline Time Spent with Patient Time attestation: Total time spent providing and/or coordinating discharge services: Time spent: Greater than 30 minutes Exam Vital Signs Temp Pulse Resp BP Pulse Ox O2 Del Method 98.3 F 98 20 119/79 98 Room Air 12/11/24 08:00 12/11/24 08:00 12/11/24 08:00 12/11/24 08:00 12/11/24 08:00 12/11/24 08:00 Narrative Exam Physical Exam GENERAL: NAD, AAOx3 HEENT: Moist mucosa. Eyes open, symmetrical, & clear CARDIO: Heart RRR, no obvious murmurs PULM: No noted coughing/dyspnea CTA B/L, no R/W/R GI: Abdomen soft, nondistended, no pain on palpation. BSx4 SKIN/MSK/EXT: No wounds/rashes/edema/amputations, no pain on palpation. Pedal pulses present B/L NEURO: AAOx3, left upper extremity, left lower extremity weakness, decreased sensation on left side of body, left temporal hemianopia Discharge Plan Plan Patient Disposition: Retirement/Court/Law Patient condition on transfer: Stable Care Plan Goals: Recommend taking aspirin and atorvastatin for possible stroke, please follow-up with neurologist Dr Marin within 2 weeks of discharge from hospital. In case of worsening symptoms return to emergency room. Prescriptions/Referrals Prescriptions/Med Rec: New aspirin [Ecotrin Low Strength] 81 mg Tablet,Delayed Release (Dr/Ec) 81 mg PO QDAY 30 Days Qty: 30 0RF atorvastatin 20 mg Tablet 40 mg PO HS 30 Days Qty: 60 0RF Discontinued azithromycin 250 mg tablet See Rx Instructions .ROUTE .COMPLEX Qty: 6 0RF Rx Instructions: For 250 mg dose pack: take 500 mg today (day 1), then 250 mg for 4 days (days 2-5) ibuprofen 600 mg tablet 600 mg PO QID PRN (Reason: pain) Qty: 20 0RF Referrals: Lucy([facility])Jennifer MD [Primary Care Provider] - Noé Marin MD [Physician] - Patient/Caregiver Discharge Instructions Print Language: Sudanese Discharge Order Discharge Orders: Discharge (Routine); Ordered 12/11/24 Ordered By: Stephanie Santacruz Quality Discharge Quality Measures VTE prophylaxis
--- NOTE | 2024-12-11 15:57 | PC.SS ---
Update: Patient has been downgraded to Tele. Patient alert/oriented. On room air and P.O. feeding.
--- NOTE | 2024-12-11 17:50 | PC.NURSE ---
Patient ready to be discharged per MD Marin and MD Santacruz. Called [facility] to give report to the medical team. I was informed by medical team that there needed to be a Dr to Dr report prior to calling the medical team. MD Santacruz made aware and was given the Dr's contact information. Dr. Burns awaiting phone call for report
--- NOTE | 2024-12-11 18:35 | PC.NURSE ---
Report called to the medical department at [facility] @ [phone]. Report given to
--- NOTE | 2024-12-11 23:46 | ESPR_ITS ---
Documentation for date of: 12/11/24 Subjective Subjective Interval history: Patient was seen in ICU at the bedside. Continues to have left hemiparesis from lack of voluntary effort Exam - Neurology Vital Signs Temp Pulse Resp BP Pulse Ox O2 Del Method 97.5 F 97 14 99/68 98 Room Air 12/11/24 16:00 12/11/24 16:00 12/11/24 16:00 12/11/24 16:00 12/11/24 16:00 12/11/24 08:00 Narrative Exam GENERAL APPEARANCE: Well hydrated, well-nourished in no acute distress. HEENT: Normocephalic, atraumatic, extraocular movements intact. Pupils: Equal reacting to light and accommodation NECK: Supple, no JVD or bruits. CARDIOVASULAR: Heart: S1, S2 heard, regular without S3-S4 or murmur no rubs or gallops. LUNGS/CHEST: Clear to auscultation bilaterally. No rails, rhonchi, or wheezing. Normal inspection. ABDOMEN: Soft, nontender, with normal bowel sounds. No pulsatile masses. No rebound, rigidity, or guarding. Normal inspection and palpation. EXTREMITIES: Normal inspection and palpation. No edema, clubbing or cyanosis. SKIN: Warm and dry without rashes. Normal inspection. MUSCULOSKELETAL: No cervical, thoracic, lumbar or midline bony tenderness. Normal inspection. NEURO: Alert, awake and oriented x3. Cranial nerves: II through XII grossly intact. Speech and language: Normal with no dysarthria or dysphasia. Motor system: Tone and bulk: Normal: Strength: Left hemiparesis noted. deep tendon reflexes: 2+ bilaterally symmetrical. Plantar reflex: Downgoing bilaterally. Sensory system: Impaired to all modalities of sensation on the left. Coordination: Intact to [id number] and ttkz-[id number]-[id number] test on the right. No ataxia, no dysmetria, or dysdiadochokinesia noted. No intention tremors noted. Gait: Cannot be tested. No signs of meningeal irritation noted. PSYCHIATRIC: Flat mood and affect Objective Labs 12/11/24 04:17 12/11/24 04:17 Labs: Laboratory Results - last 24 hr 12/11/24 04:17 WBC 9.4 RBC 5.41 Hgb 16.3 H Hct 48.4 MCV 90 MCH 30.1 MCHC 33.7 RDW Std Deviation 40.7 Plt Count 195 Neut % (Auto) 53 Lymph % (Auto) 34 [place] % (Auto) 8 Eos % (Auto) 5 Baso % (Auto) 1 Neut # (Auto) 4.9 Lymph # (Auto) 3.2 [place] # (Auto) 0.7 Eos # (Auto) 0.5 Baso # (Auto) 0.1 Immature Gran # (Auto) 0.04 H Absolute Nucleated RBC 0.00 Immature Gran % 0 Nucleated RBC % 0 Sodium 137 Potassium 4.5 Chloride 99 Carbon Dioxide 30.0 Anion Gap 8 BUN 14 Creatinine 1.0 Estim Creat Clear Calc 93.6 eGFR > 60 BUN/Creatinine Ratio 14 Glucose 78 Calculated Osmolality 273 L Calcium 9.9 Corrected Calcium 9.9 Phosphorus 4.5 Magnesium 2.0 Total Bilirubin 0.5 AST 28 ALT 86 H Alkaline Phosphatase 49 Total Protein 6.9 Albumin 4.1 Globulin 2.8 Albumin/Globulin Ratio 1.5 Assessment & Plan Assessment and plan (1) Cerebrovascular accident: Status: Acute Assessment and plan: Reassurance given to the patient regarding the negative MRI brain and CT head Patient continued to have left hemiparesis, not any better with thrombolytic therapy. Suspect nonneurological. Continue with physical therapy Continue with aspirin 81 mg and statin. Cervical spine findings unlikely will explain his presenting symptoms. EEG: normal study.
== END 2024-12-11 19:34 | DRG 861 ==
LOC: SERX 17:15 → SERHOLD 12-10 06:12 → S2SX 12-10 06:12
PROVIDERS: Admitting Provider Internal Medicine; Emergency Provider Emergency Medicine; PCP Internal Medicine; Visit Provider Internal Medicine
DX: R53.1 Weakness (principal); H53.462 Homonymous bilateral field defects, left side; E78.00 Pure hypercholesterolemia, unspecified; R47.01 Aphasia; R74.01 Elevation of levels of liver transaminase levels; R56.9 Unspecified convulsions; Z79.899 Other long term (current) drug therapy; Z79.82 Long term (current) use of aspirin
CPT/HCPCS: 36415; 36600; 70450; 70496; 70498; 70544; 72141; 80053; 80061; 80074; 80307; 80320; 82803; 83036; 83735; 83880; 84100; 84439; 84443; 84484; 85025; 85610; 85730; 87081; 92610; 93005; 93306; 95816; 97162; 99285; A4649; J2270; J3101; J7030; Q9967; A9270; G0480

== ENCOUNTER 2024-12-30 21:14 | Emergency (ER) | payer SELFPAY ==
[2024-12-30 21:15] VITALS: BMI 27.3
[2024-12-30 22:26] VITALS: BP 118/67; PULSE 116; RESP 18; TEMP 36.8; O2SAT 98
--- NOTE | 2024-12-30 22:35 | XR_ITS ---
Examination: CT brain head without contrast. 2-D sagittal coronal reconstructions Date and time of exam:December 30, 2024 1052 hrs. Indications: Headaches left urinary beginning 3 weeks ago, history CVA 3 weeks ago CTDI: vol (mGy):50.40 DLP: (mGycm):988 Technique: Multiple CT axial sections of the brain have been obtained, 5 mm slice thickness. Contrast has not been administered. 2-D sagittal, coronal reconstructions have been obtained Low dose protocols were performed. One or more of the following dose reduction techniques were used; automated exposure control, adjustment of the mA and/or KV according to patient size, use of iterative reconstruction technique. Findings: No significant ventricular enlargement. Intra-axial or extra-axial hemorrhage density is not seen. No mass effect or midline shift Basal cisterns are not remarkable. Fourth ventricle is midline. Cranial vault intact. Impression: Negative for acute hemorrhage, mass effect or midline shift Negative for acute mastoiditis Negative for otitis media Repeat brain MRI study as clinically warranted
--- NOTE | 2024-12-30 22:35 | PD.EDRME ---
Rapid Medical Screening Exam RME Arrival date/time: 12/30/24 21:14 39-year-old male presents emergency department complaining of left ear pain and headache for 3 days. Chief Complaint: Ear Time Seen by Provider: 12/30/24 21:27 Vital signs: Vital Signs Temperature 98.2 F 12/30/24 22:26 Pulse Rate 116 H 12/30/24 22:26 Respiratory Rate 18 12/30/24 22:26 Blood Pressure 118/67 12/30/24 22:26 Pulse Oximetry (%) 98 12/30/24 22:26 Oxygen Delivery Method Room Air 12/30/24 22:26 Vital signs reviewed by provider: Yes
--- NOTE | 2024-12-30 23:19 | EDNOTE_ITS ---
ED Ear RME/HPI General Chief complaint: Ear Stated complaint: LEFT EARACHE AND HEADACHE X 3DAYS Time Seen by Provider: 12/30/24 21:27 Source: patient Arrival date/time: 12/30/24 21:14 39-year-old male presents emergency department complaining of left ear pain and headache for 3 days. Patient denies any fever, chills, vision changes, sore throat, vomiting, or any other associated symptom. Mode of arrival: ambulatory Limitations: no limitations RME / HPI RME / HPI Narrative: 12/30/24 21:14 39-year-old male presents emergency department complaining of left ear pain and headache for 3 days. Related Data Previous Rx's ?Medication ?Instructions ?Recorded aspirin 81 mg tablet,delayed 81 mg PO QDAY 30 days #30 tabs 12/11/24 release (Ecotrin Low Strength) atorvastatin 20 mg tablet 40 mg (2 x 20 mg) PO HS 30 d ays 12/11/24 #60 tabs acetaminophen 500 mg capsule 500 mg PO Q6H PRN pain #3 0 caps 12/30/24 ofloxacin 0.3 % ear drops 10 drp otic (ear) QDAY 7 day s #5 mL 12/30/24 Allergies Allergy/AdvReac Type Severity Reaction Status Date / Time No Known Allergies Allergy Verified 11/04/22 23:22 Review of Systems Review of Systems Systems Reviewed: All systems reviewed, normal except as documented Constitutional Constitutional: Reports system reviewed and no additional complaints, except as documented, Denies body ache(s), Denies chills, Denies fever(s) and Reports headache(s) Eyes Eyes: Reports system reviewed and no additional complaints, except as documented and Denies change in vision ENT Ears, Nose, Mouth, and Throat: Reports system reviewed and no additional complaints, except as documented, Denies disequilibrium, Denies dizziness, Reports otalgia, Reports headache(s), Denies sore throat and Denies vertigo Cardiovascular Cardiovascular: Reports system reviewed and no additional complaints, except as documented, Denies chest pain and Denies dyspnea Respiratory Respiratory: Reports system reviewed and no additional complaints, except as documented, Denies chest congestion, Denies cough and Denies dyspnea Gastrointestinal Gastrointestinal: Reports system reviewed and no additional complaints, except as documented, Denies abdominal pain, Denies nausea and Denies vomiting Musculoskeletal Musculoskeletal: Reports system reviewed and no additional complaints, except as documented, Denies abnormal gait and Denies arthralgias Integumentary/Breasts Skin/Breast: Reports system reviewed and no additional complaints, except as documented, Denies erythema, Denies rash and Denies wounds Neurologic Neurologic: Reports system reviewed and no additional complaints, except as documented, Denies abnormal gait, Denies disequilibrium, Denies dizziness, Reports headache(s) and Denies vertigo Past Medical History Past Medical History NEUROLOGIC: Positive Seizures CARDIAC: Positive Hypercholesterolemia; Negative Congestive Heart Failure RESPIRATORY: Positive Pneumonia ( PER PT); Negative Chronic Obstructive Pulmonary Disease (COPD) GENITOURINARY: Negative Renal Disease ENDOCRINE: Negative Diabetes Mellitus Type 1 or Diabetes Mellitus Type 2 Social History SMOKING STATUS: Former smoker ED Exam General Limitations: Present no limitations General appearance: Present alert and in no apparent distress Head Head exam: Present atraumatic Eye Eye exam: Present normal appearance, PERRL and EOMI ENT ENT exam: Present normal exam, normal oropharynx and mucous membranes moist Expanded ENT Exam External ear exam: Present normal external inspection TM/Canal exam: Left TM: erythema and canal tenderness Neck Neck exam: Present normal inspection, full ROM and trachea midline Chest Chest inspection: Present normal inspection and symmetric chest wall rise Respiratory Respiratory exam: Present normal lung sounds bilaterally Cardiovascular Cardiovascular exam: Present regular rate, normal rhythm and normal heart sounds Abdominal Exam Abdominal exam: Present soft and normal bowel sounds Extremities Exam Extremities exam: Present normal inspection and full ROM Back Exam Back exam: Present normal inspection and full ROM Neurological Exam Neurological exam: Present alert, oriented X3 and CN II-XII intact Psychiatric Psychiatric exam: Present normal affect and normal mood Skin Skin exam: Present warm, dry, intact and normal color Course Quality Measures none Orders Category Date Time Status CT head/brain wo con Stat Exams 12/30/24 22:35 Completed Vital Signs Vital signs: Vital Signs Temperature 98.2 F 12/30/24 22:26 Pulse Rate 116 H 12/30/24 22:26 Respiratory Rate 18 12/30/24 22:26 Blood Pressure 118/67 12/30/24 22:26 Pulse Oximetry (%) 98 12/30/24 22:26 Oxygen Delivery Method Room Air 12/30/24 22:26 98% room air within normal limits Ear MDM Narrative MDM Narrative:: 39-year-old male presents emergency department complaining of left ear pain and headache for 3 days. Patient denies any fever, chills, vision changes, sore throat, vomiting, or any other associated symptom. Patient appears nontoxic and is hemodynamic stable. Patient GCS 15 with steady gait and answering questions appropriately. ENT exam left ear canal erythematous and tender with no bulging tympanic membrane. CT of head was unremarkable. Will treat for otitis externa. Instructed patient to follow-up with primary care provider and return to emergency department for any worsening symptoms or as needed. Patient data External records reviewed:: [facility] previous records Clinical information provided by:: patient Social determinants that could affect healthcare access:: none Patient has the following chronic illnesses:: See chart How is presenting disease/condition affected by chronic disease/condition?: uneffected by Evaluation data The following diagnostics were reviewed and interpreted by me:: radiology exam(s) Lab and/or radiology exams considered but not ordered:: Ordered Interpretation Summary: Interpreted me Medications / Prescriptions Medications or Prescriptions considered but not ordered:: N/A Medication administrations:: N/A Consultations Consultation(s) initiated? (list below): No Diagnosis Ear Differential Diagnosis: otitis externa and otitis media Most likely diagnosis given after review of the tests above:: Otitis externa Admission Indicated Admission indicated?: not indicated Admission Request Was there a request for admission?: No Disposition Plan Disposition Plan: Discharge Discharge Attestation Discharge Attestation: The patient and all family members were given an opportunity to ask questions and understood the discharge instructions. Discharge instructions specifically effects, indications for sooner follow up or return to the emergency department, and the expected course of current diagnosis. Patient condition: Stable Discharge Plan Plan Patient Disposition: HOME (Self Care) Disposition Comment: Stable Prescriptions/Referrals Prescriptions/Med Rec: New ofloxacin 0.3 % drops 10 drp otic (ear) QDAY 7 Days Qty: 5 0RF acetaminophen 500 mg capsule 500 mg PO Q6H PRN (Reason: pain) Qty: 30 0RF No Action aspirin [Ecotrin Low Strength] 81 mg Tablet,Delayed Release (Dr/Ec) 81 mg PO QDAY 30 Days Qty: 30 0RF atorvastatin 20 mg Tablet 40 mg PO HS 30 Days Qty: 60 0RF Referrals: No Primary/Family,Physician [Primary Care Provider] - In 1 week Problem List Clinical Impression: Otitis externa Patient/Caregiver Discharge Instructions Discharge Activity: activity as tolerated Education Materials: ED External Ear Infection (Adult) Additional Instructions: Apply medication as prescribed. Take Tylenol or ibuprofen as needed for pain. Follow-up with primary care provider in 2 to 3 days and request referral to ENT if symptoms persist. Return to emergency department for any worsening symptoms or as needed. Print Language: [place] Stand Alone Forms: Anne-Marie Award Info., Patient Portal Info Letter PA/ANGELO Supervising Physician PA/ANGELO Supervising Physician: Dr. Lane
[2024-12-30 23:35] VITALS: BP 128/76; PULSE 76; RESP 18; TEMP 36.8; O2SAT 98
== END 2024-12-30 23:36 | disposition home or self-care (01) ==
PROVIDERS: Emergency Provider Emergency Medicine
DX: H60.92 Unspecified otitis externa, left ear (principal); R51.9 Headache, unspecified
CPT/HCPCS: 70450; 99284